=== PATIENT | male | born 1970 | race Caucasian/White ===

== ENCOUNTER 2024-03-12 19:26 | Inpatient (IN) | payer SELFPAY ==
[2024-03-12] VITALS (12 sets, daily range): BP systolic 117–136; BP diastolic 39–76; PULSE 90–100; RESP 22–42; TEMP 37–39.5; O2SAT 85–94; BMI 21.2
--- NOTE | 2024-03-12 19:47 | XRR_ITS ---
PROCEDURE INFORMATION: Exam: XR Chest Exam date and time: 03/12/2024 8:43 PM Age: 53 years old Clinical indication: Patient HX: AMS; Weakness; Hypoxia; Fever TECHNIQUE: Imaging protocol: Radiologic exam of the chest. Views: 1 view. COMPARISON: No relevant prior studies available. FINDINGS: Lungs: Slight asymmetrical haziness is seen at the left lower lung field compared to the right. Findings may be related to under ventilation though early infiltrate in this region may be difficult to exclude on this portable view. Pleural spaces: Unremarkable. No pleural effusion. No pneumothorax. Heart/Mediastinum: Unremarkable. No cardiomegaly. Bones/joints: Unremarkable. XR/XR chest 1V portable [id number] IMPRESSION: Subtle asymmetry at the left lung base representing either under ventilation versus subtle infiltrate. If necessary, repeat radiograph using standard PA and lateral projection may be of benefit.
--- NOTE | 2024-03-12 19:47 | CTR_ITS ---
PROCEDURE INFORMATION: Exam: CT Head Without Contrast Exam date and time: 03/12/2024 8:49 PM Age: 53 years old Clinical indication: Altered mental status/memory loss; Patient HX: EMS arrival for AMS. Patient acutely confused. Unable to obtain further history. TECHNIQUE: Imaging protocol: Computed tomography of the head without contrast. Radiation optimization: All CT scans at this facility use at least one of these dose optimization techniques: automated exposure control; mA and/or kV adjustment per patient size (includes targeted exams where dose is matched to clinical indication); or iterative reconstruction. COMPARISON: No relevant prior studies available. RADIATION DOSE METRICS: Total DLP (mGy-cm): 2241.98 FINDINGS: Brain: No intracranial hemorrhage. There is global parenchymal volume loss. Periventricular white matter hypoattenuation is nonspecific but most likely due to small vessel disease. No evidence of acute territorial infarct or cerebral edema. No mass effect or midline shift. Cerebral ventricles: Prominent ventricles likely secondary to volume loss. Paranasal sinuses: Visualized sinuses are unremarkable. No fluid levels. Mastoid air cells: Visualized mastoid air cells are well aerated. There are soft tissue filling defects within the external auditory canals bilaterally. Bones: Unremarkable. No acute fracture. Soft tissues: Unremarkable. CT/CT head wo con* [id number] IMPRESSION: 1. No acute intracranial findings. 2. Soft tissue filling defect in external auditory canals for which correlation with physical exam be helpful.
--- NOTE | 2024-03-12 19:48 | ECG_ITS ---
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 Measurements Intervals [place] Rate: 96 P: 60 RI: 145 QRS: 77 QRSD: 141 T: 56 QT: 351 QTc: 443 Interpretive Statements SINUS RHYTHM RIGHT BUNDLE BRANCH BLOCK [120+ ms QRS DURATION, UPRIGHT V1, 40+ ms S IN I/aVL/V4/V5/V6] No previous ECG available for comparison Electronically Signed On 03-13-2024 7:20:28 CDT by Asim De La Cruz M.D. [id number]
[2024-03-12 20:00] LABS: ABG PCO2 25.3 mmHg (35-45); ABG PH Result 7.47 (7.35-7.45); Base Excess ABG -3.6 mmol/L (-2.0-2.0); Blood Gas Sample Site Brachial, right; Blood Gas Sample Type Arterial; Carboxyhemoglobin 0.6 %THgb (0.4-20.1); HCO3 ABG 18.3 mmol/L (22-26); HGB O2 Sat 89.4 % (95-100); Methemoglobin 1.2 % (0.4-1.5); Oxygen Device ROOM AIR; PO2 ABG 57.1 mmHg (80.0-100.0)
--- NOTE | 2024-03-12 20:19 | W.ED.AMS ---
HPI - Altered Mental Status General: Chief Complaint: Altered Mental Status Stated Complaint: AMS Time Seen by Provider: 03/12/24 19:42 Source: EMS Mode of arrival: EMS Limitations: altered mental status History of Present Illness: 53-year-old male that neighbors went and checked on him today because he had not seen him in 3 days found him very confused and his house states the house was very hot here patient is able to tell me his name but he is quite confused otherwise. He appears very dehydrated. Patient does not know the year or where he is from. He is febrile here. Review of Systems General: Reports: ROS unobtainable due to mental status Physical Exam Const: COMMON NORMALS: negative for patient oriented x3 EXAM LIMITATIONS: altered mental status GENERAL APPEARANCE: ill appearing HENMT: COMMON NORMALS: normocephalic and atraumatic HEAD & SCALP: normocephalic and atraumatic Eye: COMMON NORMALS: Equal, round and reactive pupils present and EOMs intact bilaterally PUPIL: Yes Equal, round and reactive pupils present Neck/C-Spine: COMMON NORMALS: full ROM and supple Chest: COMMONS NORMALS: normal inspection of the chest Resp: COMMON NORMALS: normal respiratory effort Cardio: COMMON NORMALS: regular rate, regular rhythm and No murmurs present (Cardio) RATE: regular rate RHYTHM: regular rhythm GI: COMMON NORMALS: Normal to inspection, nondistended, normoactive bowel sounds present, Soft to palpation, non-tender and no masses PALPATION: Yes Soft to palpation Extremity: COMMON NORMALS: normal to inspection Neuro: COMMON NORMALS: moves all extremities and no focal motor deficits; negative for patient oriented x3 Psych: COMMON NORMALS: cooperative; negative for Normal thought process present THOUGHT PROCESS: abnormal Skin: COMMON NORMALS: no rashes or lesions noted and no wounds GENERAL SKIN EXAM: no rashes or lesions noted Course Vital Signs: Vital signs: Vital Signs Temperature 98.6 F 03/12/24 20:15 Pulse Rate 94 03/12/24 22:30 Respiratory Rate 33 H 03/12/24 22:30 Blood Pressure 117/59 03/12/24 22:30 Pulse Oximetry 91 03/12/24 22:30 Oxygen Delivery Me thod Room Air 03/12/24 22:30 Oxygen Flow Rate 2 03/12/24 22:00 MDM - Altered Mental Status Medical Decision Making Patient presents with confusion he is much improved here after IV fluids once he is awake now he does admit to drinking daily he is in rhabdomyolysis with elevated CK as well as thrombocytopenia as well. No signs of any infection initial fever likely is due to heat exposure did send blood cultures and start him on antibiotics though. Medical Records I reviewed the patient's medical records. Lab Data I reviewed the patient's lab results. 03/12/24 20:15 03/12/24 20:15 Radiology Impressions Chest X-Ray 03/12/24 19:47 IMPRESSION: Subtle asymmetry at the left lung base representing either under ventilation versus subtle infiltrate. If necessary, repeat radiograph using standard PA and lateral projection may be of benefit. Head CT 03/12/24 19:47 IMPRESSION: 1. No acute intracranial findings. 2. Soft tissue filling defect in external auditory canals for which correlation with physical exam be helpful. Chest/Abdomen/Pelvis CT 03/12/24 22:17 IMPRESSION: 1. Patchy airspace/ground-glass densities in both lung kyle, nonspecific but can be seen with chronic aspiration/pneumonia. Minor background appearance of early fibrotic lung disease. 2. Coronary artery calcification. IMPRESSION: 1. Hepatic steatosis. 2. Splenomegaly 3. Bilateral inguinal fat hernias. Laboratory Results WBC 7.83 10^3/uL (3.29-11.43) 03/12/24 20:15 RBC 4.17 10^6/uL (3.85-5.65) 03/12/24 20:15 Hgb 13.80 g/dL (11.27-16.99) 03/12/24 20:15 Hct 40.7 % (37-53) 03/12/24 20:15 MCV 97.6 fl (82-101) 03/12/24 20:15 MCH 33.1 pg (27-33) H 03/12/24 20:15 MCHC 33.9 g/dL (30-55) 03/12/24 20:15 RDW 13.2 % (12.1-15.1) 03/12/24 20:15 Plt Count 20 10^3/cmm (157-399) L* 03/12/24 20:15 MPV 11.8 fL (7.4-10.4) H 03/12/24 20:15 Neut % (Auto) 14.4 % 03/12/24 20:15 Lymph % (Auto) 39.2 % 03/12/24 20:15 [place] % (Auto) 42.4 % 03/12/24 20:15 Eos % (Auto) 0.0 % 03/12/24 20:15 Baso % (Auto) 0.3 % 03/12/24 20:15 Neut # (Auto) 1.13 10^3/uL (1.8-7.7) L 03/12/24 20:15 Lymph # (Auto) 3.1 10^3/uL (0.8-4.8) 03/12/24 20:15 [place] # (Auto) 3.3 10^3/uL (0.2-0.9) H 03/12/24 20:15 Eos # (Auto) 0.0 10^3/uL (0.0-0.8) 03/12/24 20:15 Baso # (Auto) 0.0 10^3/uL (0.0-0.1) 03/12/24 20:15 Nucleated RBC % (auto) 0.3 % 03/12/24 20:15 Nucleated RBCs # 0.0 /100WBC 03/12/24 20:15 Peripher Smr Path Cons Sent for review 03/12/24 22:39 PT 18.10 SECONDS (12.1-14.9) H 03/12/24 22:39 INR 1.45 (0.8-1.2) H 03/12/24 22:39 APTT 65.8 SECONDS (23.9-36.7) H 03/12/24 22:39 Specimen Type Arterial 03/12/24 19:48 Sample Site Brachial, right 03/12/24 19:48 ABG pH 7.47 (7.35-7.45) H 03/12/24 19:48 ABG pCO2 25.3 mmHg (35-45) L 03/12/24 19:48 ABG pO2 57.1 mmHg (80.0-100.0) L 03/12/24 19:48 ABG HCO3 18.3 mmol/L (22-26) L 03/12/24 19:48 ABG Base Excess -3.6 mmol/L (-2.0-2.0) L 03/12/24 19:48 [place] Test N/a 03/12/24 19:48 Hematocrit 46.0 % (42-52) 03/12/24 19:48 Hgb O2 Saturation 89.4 % (95-100) L 03/12/24 19:48 Carboxyhemoglobin 0.6 %THgb (0.4-20.1) 03/12/24 19:48 Methemoglobin 1.2 % (0.4-1.5) 03/12/24 19:48 Total Hemoglobin 15.0 g/dL (14-18) 03/12/24 19:48 O2 Delivery Device Room air 03/12/24 19:48 Warehouse Foreman ID [email or web address] 03/12/24 19:48 Sodium 134 mmol/L (136-145) L 03/12/24 20:15 Potassium 4.5 mmol/L (3.5-5.1) 03/12/24 20:15 Chloride 103 mmol/L (98-107) 03/12/24 20:15 Carbon Dioxide 18 mmol/L (22-29) L 03/12/24 20:15 Anion Gap 17.5 (5-19) 03/12/24 20:15 BUN 38 mg/dL (6-20) H 03/12/24 20:15 Creatinine 1.2 mg/dL (0.7-1.2) 03/12/24 20:15 GFR Calculation 63.1 mL/min (90-130) L 03/12/24 20:15 Glucose 93 mg/dL (65-115) 03/12/24 20:15 POC Glucose 91 mg/dL (70-110) 03/12/24 20:20 Calculated Osmolality 287 mOsm/kg (285-295) 03/12/24 20:15 Lactic Acid 2.3 mmol/L (0.5-2.2) H 03/12/24 20:15 Lactic Acid (Sepsis) 1.9 mmol/L (0.5-2.2) 03/12/24 22:39 Calcium 7.7 mg/dL (8.5-10.5) L 03/12/24 20:15 Magnesium 2.2 mg/dL (1.7-2.3) 03/12/24 20:15 Total Bilirubin 0.5 mg/dL (0.15-1.2) 03/12/24 20:15 AST 631 U/L (0-40) H 03/12/24 20:15 ALT 252 U/L (0-41) H 03/12/24 20:15 Alkaline Phosphatase 86 U/L (40-130) 03/12/24 20:15 Ammonia 28 umol/L (16-60) 03/12/24 20:15 Creatine Kinase 2713 U/L (39-308) H* 03/12/24 20:15 Troponin T Baseline 19 ng/L (0-15) H 03/12/24 20:15 Troponin T 120 Minute 19.71 ng/L (0-15) H 03/12/24 22:03 Delta Troponin T 0.71 ABS# (0-10) 03/12/24 22:03 C-Reactive Protein 3.0 mg/L (0.0-4.9) 03/12/24 22:39 Total Protein 7.5 g/dL (6.6-8.7) 03/12/24 20:15 Albumin 3.0 g/dL (3.5-5.2) L 03/12/24 20:15 Globulin 4.5 g/dL (1.3-4.6) 03/12/24 20:15 Lipase 167 U/L (13-60) H 03/12/24 20:15 TSH 0.65 uIU/mL (0.27-4.20) 03/12/24 20:15 Urine Color Dark yellow (Yellow) A 03/12/24 22:04 Urine Appearance Cloudy (CLEAR) A 03/12/24 22:04 Urine pH 5.5 (5-7) 03/12/24 22:04 Ur Specific [place] 1.017 (1.005-1.030) 03/12/24 22:04 Urine Protein 3+ (Negative) A 03/12/24 22:04 Urine Glucose (UA) Negative (Normal) 03/12/24 22:04 Urine Ketones Negative (Negative) 03/12/24 22:04 Urine Blood 3+ (Negative) A 03/12/24 22:04 Urine Nitrate Negative (Negative) 03/12/24 22:04 Urine Bilirubin Negative (Negative) 03/12/24 22:04 Urine Urobilinogen 1.0 mg/dL (Negative) 03/12/24 22:04 Ur Leukocyte Esterase Negative (Negative) 03/12/24 22:04 Urine RBC 0-2 /hpf (0-2) 03/12/24 22:04 Urine WBC 0-5 /hpf (0-5) 03/12/24 22:04 Ur Squamous Epith Cells 0-5 /hpf (0-5) 03/12/24 22:04 Amorphous Sediment Not Reportable 03/12/24 22:04 Urine Bacteria 2+ /hpf (NONE) H 03/12/24 22:04 Hyaline Casts 57.91 /lpf 03/12/24 22:04 Coarse Granular Casts 5-10 /lpf H 03/12/24 22:04 Urine Opiates Screen Negative ng/mL (Negative) 03/12/24 22:04 Ur Barbiturates Screen Negative ng/mL (Negative) 03/12/24 22:04 Ur Phencyclidine Scrn Negative ng/mL (Negative) 03/12/24 22:04 Ur Amphetamines Screen Negative ng/mL (Negative) 03/12/24 22:04 U Benzodiazepines Scrn Negative ng/mL (Negative) 03/12/24 22:04 Urine Cocaine Screen Negative ng/mL (Negative) 03/12/24 22:04 U Marijuana (THC) Screen Positive ng/mL (Negative) H 03/12/24 22:04 Ethyl Alcohol < 10 mg/dL (0-10) 03/12/24 20:15 SARS-CoV-2 Ag (Rapid) negative (Negative) 03/12/24 22:04 All radiology interpretation(s) finalized by discharge EKG Data EKG 1: I personally reviewed and interpreted this EKG as follows: EKG interpretation date: 03/12/24 EKG interpretation time: 20:09 Interpretation: nsr hr [address] or t wave abnormalities qrs 141 qtc 404 Discharge Plan Discharge Patient Disposition: Admitted As Inpatient Clinical Impression: Altered mental status, Rhabdomyolysis, Thrombocytopenia Condition: Stable Patient Instructions: Altered Mental Status (ED) Coding Level of Care Code ED Senior Applications Engineer for Misha Kunz
[2024-03-12 20:24] LABS: Glucose Point of Care 91 mg/dL (70-110)
[2024-03-12 20:38] LABS: Basophils % 0.3 %; Hematocrit 40.7 % (37-53); Lymphocytes # 3.1 10^3/uL (0.8-4.8); Lymphocytes % 39.2 %; Mean Corpuscular HGB Conc 33.9 g/dL (30-55); Mean Corpuscular Hemoglobin 33.1 pg (27-33); Mean Corpuscular Volume 97.6 fl (82-101); Mean Platelet Volume 11.8 fL (7.4-10.4); Monocytes # 3.3 10^3/uL (0.2-0.9); Monocytes % 42.4 %; Neutrophils # 1.13 10^3/uL (1.8-7.7); Neutrophils % 14.4 %; Nucleated Red Blood Cells % 0.3 %; Red Blood Count 4.17 10^6/uL (3.85-5.65); Red Cell Distribution Width 13.2 % (12.1-15.1); White Blood Count 7.83 10^3/uL (3.29-11.43)
[2024-03-12 20:49] LABS: INR 1.38 (0.8-1.2)
[2024-03-12 20:55] LABS: Troponin(5th) Baseline 19 ng/L (0-15)
[2024-03-12 20:57] LABS: Ammonia 28 umol/L (16-60); Lactic Sepsis W/Reflex 2.3 mmol/L (0.5-2.2)
[2024-03-12 21:29] LABS: Platelet Count 20 10^3/cmm (157-399); Slide Review Slide Review Perform
[2024-03-12] MEDS: acetaminophen 325 mg Tablet 650 MG PO (21:35)
[2024-03-12] MEDS: sodium chloride 0.9% 1,000 ML 999 ML IV ×2 (21:36→22:44)
--- NOTE | 2024-03-12 21:39 | PC.NURSE ---
PT PLACED ON 2L NC SUPPLEMENTAL O2 DUE TO SPO2 INTERMITTENTLY DROPPING.
--- NOTE | 2024-03-12 21:48 | ECG_ITS ---
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 Measurements Intervals [place] Rate: 88 P: 58 UT: 137 QRS: 71 QRSD: 144 T: 35 QT: 357 QTc: 433 Interpretive Statements SINUS RHYTHM RIGHT BUNDLE BRANCH BLOCK [120+ ms QRS DURATION, UPRIGHT V1, 40+ ms S IN I/aVL/V4/V5/V6] No previous ECG available for comparison Electronically Signed On 03-13-2024 7:21:02 CDT by Asim De La Cruz M.D. [id number]
[2024-03-12 22:01] LABS: Alanine Aminotransferase 252 U/L (0-41); Alcohol Level < 10 mg/dL (0-10); Alkaline Phosphatase 86 U/L (40-130); Anion Gap 17.5 (5-19); Aspartate Amino Transferase 631 U/L (0-40); Blood Urea Nitrogen 38 mg/dL (6-20); Calcium 7.7 mg/dL (8.5-10.5); Carbon Dioxide 18 mmol/L (22-29); Chloride 103 mmol/L (98-107); Creatinine Clr Calc Pharmacy 64.0378; Globulin 4.5 g/dL (1.3-4.6); Glomerular Filtration Rate 63.1 mL/min (90-130); Glucose 93 mg/dL (65-115); Lipase 167 U/L (13-60); Magnesium 2.2 mg/dL (1.7-2.3); Osmolality Calculated 287 mOsm/kg (285-295); Potassium 4.5 mmol/L (3.5-5.1); Sodium 134 mmol/L (136-145); Total Bilirubin 0.5 mg/dL (0.15-1.2); Total Protein 7.5 g/dL (6.6-8.7)
[2024-03-12 22:10] LABS: Thyroid Stimulating Hormone 0.65 uIU/mL (0.27-4.20)
[2024-03-12 22:10] LABS: Charge for UA Resulting for Rev
[2024-03-12 22:14] LABS: Bilirubin Urine Negative (Negative); Blood Urine 3+ (Negative); Glucose Urine UA Negative (Normal); Ketones Urine Negative (Negative); Leukocyte Esterase Urine Negative (Negative); Nitrate Urine Negative (Negative); Protein Urine 3+ (Negative); Specific Gravity, Urine 1.017 (1.005-1.030); Urine Appearance Cloudy (CLEAR); Urine Color Dark Yellow (Yellow); pH Urine 5.5 (5-7)
--- NOTE | 2024-03-12 22:17 | CTR_ITS ---
PROCEDURE INFORMATION: Exam: CT Chest With Contrast; Diagnostic Exam date and time: 03/12/2024 10:25 PM Age: 53 years old Clinical indication: Abnormal findings; Abnormal lab test; Other: Plt count 20. Ck 2713; Patient HX: EMS arrival for AMS. Critically low plt count of 20. Ck of 2713. Febrile. ; Additional info: Fever TECHNIQUE: Imaging protocol: Diagnostic computed tomography of the chest with contrast. Radiation optimization: All CT scans at this facility use at least one of these dose optimization techniques: automated exposure control; mA and/or kV adjustment per patient size (includes targeted exams where dose is matched to clinical indication); or iterative reconstruction. Contrast material: OMNI 350; Contrast volume: 100 ml; Contrast route: INTRAVENOUS (IV); COMPARISON: CR XR chest 1V portable [id number] 03/12/2024 8:43 PM RADIATION DOSE METRICS: Total DLP (mGy-cm): 2081.31 FINDINGS: Lungs: There is a combination of scattered patchy ground-glass densities in the right upper and lower lobe but also seen in the left lingula and lower lobe. There are subpleural areas resembling fibrotic honeycombing. Pleural spaces: Unremarkable. No pneumothorax. No pleural effusion. Heart: Unremarkable. No cardiomegaly. No pericardial effusion. Coronary arteries: There is coronary artery calcification. Lymph nodes: Unremarkable. No enlarged lymph nodes. Vasculature: Unremarkable. No aortic aneurysm. Bones/joints: Unremarkable. No acute fracture. Soft tissues: Unremarkable. PROCEDURE INFORMATION: Exam: CT Abdomen And Pelvis With Contrast Exam date and time: 03/12/2024 10:25 PM Age: 53 years old Clinical indication: Abnormal findings; Abnormal lab test; Other: Plt count 20. Ck 2713; Patient HX: EMS arrival for AMS. Critically low plt count of 20. Ck of 2713. Febrile. ; Additional info: Fever TECHNIQUE: Imaging protocol: Computed tomography of the abdomen and pelvis with contrast. Radiation optimization: All CT scans at this facility use at least one of these dose optimization techniques: automated exposure control; mA and/or kV adjustment per patient size (includes targeted exams where dose is matched to clinical indication); or iterative reconstruction. Contrast material: OMNI 350; Contrast volume: 100 ml; Contrast route: INTRAVENOUS (IV); COMPARISON: CR XR chest 1V portable [id number] 03/12/2024 8:43 PM RADIATION DOSE METRICS: Total DLP (mGy-cm): 2082.31 FINDINGS: Liver: The liver is diffusely decreased in density, compatible with hepatic steatosis. Gallbladder and biliary ducts: Normal. No calcified stones. No ductal dilation. Pancreas: Normal. No ductal dilation. Spleen: The spleen appears enlarged. Adrenal glands: Normal. No mass. Kidneys and ureters: Normal. No hydronephrosis. Stomach and bowel: Unremarkable. No obstruction. No mucosal thickening. Appendix: No evidence of appendicitis. Intraperitoneal space: Unremarkable. No free air. No significant fluid collection. Vasculature: Atherosclerotic calcification most significantly affecting the abdominal aorta and iliac arteries. No abdominal aortic aneurysm. Lymph nodes: Unremarkable. No enlarged lymph nodes. Urinary bladder: Unremarkable as visualized. Reproductive: Unremarkable as visualized. Bones/joints: Unremarkable. No acute fracture. Soft tissues: Bilateral inguinal fat hernias. CT/CT chest abdpel w/*[id number] IMPRESSION: 1. Patchy airspace/ground-glass densities in both lung kyle, nonspecific but can be seen with chronic aspiration/pneumonia. Minor background appearance of early fibrotic lung disease. 2. Coronary artery calcification. IMPRESSION: 1. Hepatic steatosis. 2. Splenomegaly 3. Bilateral inguinal fat hernias.
--- NOTE | 2024-03-12 22:18 | P.HP_ITS ---
Providers/Chief Complaint 2 Chief Complaint: AMS History of Present Illness Jorge Zapata is a 53 year old male with a past medical history significant for alcohol use disorder who presents to the emergency department with altered mental status. Upon assessment, patient is found to be a very poor historian. He is awake but unable to provide much regarding pertinent history. Collateral information collected from ED provider. Per collateral information, neighbors reportedly called EMS as they had not seen the patient for about 3 days. He was reportedly found to be in the hot home and very confused. They brought him to the emergency department. Upon presentation, he was found to be febrile. He was reportedly extremely confused upon presentation. Upon my evaluation his confusion has improved somewhat per nursing staff. He is awake. He is aware he is in [place]. States he is lived here for 17 years. He denies any chronic medical conditions. He reports he takes some medications but the only pill bottle with them is a acetaminophen/codeine with a fill date from November 2023. Patient reports the only surgery he is has hernia repair. He reports he drinks alcohol beer daily. He initially reports a sixpack a day but then is unsure if it is a sixpack a week. He denies fevers, chills, nausea or emesis. Denies other alleviating or aggravating factors. He has noted to have dried blood in his mouth and around his lips. In the emergency department, further workup revealed tachypnea. Labs revealed severe thrombocytopenia with platelets of 20. No anemia or leukocytosis. INR slightly elevated to 1.45. Further blood work showed mild hyponatremia, metabolic acidosis with bicarb 18, azotemia with BUN 38, lactic acidosis of 2.3, and elevated liver enzymes with AST 631, ALT 252. Bilirubin level normal. CK level elevated to 2713. CT chest abdomen pelvis obtained showing patchy airspace opacities in both lung kyle. Review of Systems 2 Narrative: A complete review of systems was obtained and is negative except as stated in HPI. PFSH Acute 2 PFSH: Medical History Alcohol use disorder Hernia Surgical History History of hernia repair Family History Denies family history of Thrombocytopenia Social History Smoking and tobacco/nicotine status: unknown if used tobacco/nicotine Alcohol intake: current Substance/Drug Use: never Vitals/I&O/Wt Last Vital Signs Temp 98.6 F 03/12/24 20:15 Pulse 97 03/12/24 19:50 Resp 24 H 03/12/24 19:50 BP 121/76 03/12/24 19:50 Pulse Ox 94 03/12/24 19:50 Weight last 48 hrs Weight 61.689 kg Physical Exam 2 Narrative: General: Patient is awake. Frail and cachectic appearing. Appears poorly kept. Head: Normocephalic. EOM intact. Temporal wasting. Poor dentition. Dried blood on gum and lip. Neck: No JVD. Cardiovascular: RRR. No gallops. No murmurs. No peripheral edema. Delayed capillary refill. Lungs: Slightly tachypneic, no use of accessory muscles, no crackles or wheezes. On room air Skin: No jaundice. No rashes. Abdomen: Normal bowel sounds, abdomen soft and nontender. Extremities: No cyanosis or clubbing. Musculoskeletal: No swollen or erythematous joints. Neurological: Moves all 4 extremities. No myoclonus. Data 03/12/24 20:15 03/12/24 20:15 Micro: Microbiology 03/12/24 20:23 Blood Culture - Preliminary Blood SPECIMEN COLLECTED 03/12/24 20:15 Blood Culture - Preliminary Blood SPECIMEN COLLECTED A&P Assessment and plan (1) Sepsis: Source: Suspected community-acquired pneumonia, possible aspiration SIRS: Tachypnea, febrile Hold off on full 30 mL/kg body weight IV fluid bolus due to concern for underlying liver dysfunction Start gentle IV fluids Start underlying treatment with ceftriaxone and azithromycin MRSA screen Panculture Telemetry Check inflammatory markers (2) Thrombocytopenia: Severe thrombocytopenia with platelets of 20 Differential includes sepsis, alcohol induced, ITP, TTP, DIC Normal bilirubin and normal hemoglobin suggest against TTP Check DIC panel, fibrinogen, LDH, haptoglobin, [place] 13, peripheral smear Trend CBC, consider transfusion for evidence of active bleeding or platelets less than 10,000 (3) Rhabdomyolysis: CPK elevated in the setting elevated BUN concerning for rhabdomyolysis Start IV fluids with normal saline Avoid nephrotoxins (4) Altered mental status: Acute metabolic encephalopathy Possible alcohol withdrawal within differential as well Treat underlying sepsis [facility] protocol for alcoholism Serial neurological exams Supportive care (5) Alcohol use disorder: Alcohol use disorder with abuse Start high-dose thiamine Folic acid and vitamin supplementation [facility] protocol Seizure precautions, dried blood in mouth suggestive of possible withdrawal seizure (6) Metabolic acidosis: Metabolic/lactic acidosis in the setting of sepsis, possible alcohol withdrawal seizure prior to admission Treat underlying sepsis Management as above (7) Transaminitis: AST greater than ALT Bilirubin is normal which suggest against active hemolysis Avoid hepatotoxins Repeat CMP in a.m. (8) Azotemia: Elevated BUN Starting hydration Renally dose medications Strict I's and O's Plan DVT prophylaxis: Low risk CODE STATUS: Assume full code Attestations 2 Medical Necessity Statement*: Patient presents with altered mental status, found to have multiple metabolic and hematologic derangements with expected hospitalization across 2 midnights for IV antibiotics, IV fluids, further workup, and supportive care. Coding Level of Care Code Acute Code for g Fwd Diagnoses Sepsis A41.9 Thrombocytopenia D69.6 Rhabdomyolysis M62.82 Altered mental status R41.82 Alcohol use disorder F10.90 Metabolic acidosis E87.20 Transaminitis R74.01 Azotemia R79.89
[2024-03-12 22:20] LABS: Reflex Lactate Order REFLEX LACTIC ORDERD
[2024-03-12 22:20] LABS: Hyaline Casts Urine 57.91 /lpf; RBC Urine 0-2 /hpf (0-2); Squamous Epithelial Cell Urine 0-5 /hpf (0-5); WBC Urine 0-5 /hpf (0-5)
[2024-03-12 22:22] LABS: Amphetamines Screen Urine Negative (Negative); Barbiturates Screen Urine Negative (Negative); Benzodiazepines Screen Urine Negative (Negative); Cocaine Screen Urine Negative (Negative); Opiate Screen Urine Negative (Negative); PCP Screen Urine Negative (Negative); THC Screen Urine Positive (Negative)
[2024-03-12 22:24] LABS: Creatine Phosphokinase 2713 U/L (39-308)
[2024-03-12 22:28] LABS: SARS Covid-2 Antigen negative (Negative)
[2024-03-12 22:39] LABS: Add Urine Culture? Yes; Bacteria Urine 2+ /hpf; UA Slide Review UA Slide Review Perf
[2024-03-12 22:43] LABS: Reflex FDPQ test REFLEX FDP QUEST TES
[2024-03-12 22:45] LABS: Troponin 5 2HR 19.71 ng/L (0-15); Troponin 5 2HR Delta 0.71 ABS# (0-10)
[2024-03-12] MEDS: cefTRIAXone 1,000 mg SDV 1000 MG IVP (22:45)
[2024-03-12] MEDS: azithromycin 500 MG in sodium chloride 0.9% 250 ML 250 MG IV (22:45)
[2024-03-12 22:48] LABS: LAB Peripheral Smear Sent for Review
[2024-03-12 23:01] LABS: INR 1.45 (0.8-1.2)
[2024-03-12 23:03] LABS: Partial Thromboplastin Time 65.8 SECONDS (23.9-36.7)
[2024-03-12 23:05] LABS: Lactic Acid level (Lactate) 1.9 mmol/L (0.5-2.2)
[2024-03-12 23:12] LABS: D Dimer 8.84 ug/mLFEU (0-0.59)
[2024-03-12 23:13] LABS: Procalcitonin 0.53 ng/mL (0-0.5)
[2024-03-12 23:17] LABS: Lactate Dehydrogenase 2249 U/L (135-225)
[2024-03-12 23:40] LABS: Fibrinogen 142 mg/dL (174-498)
[2024-03-13] VITALS (17 sets, daily range): BP systolic 100–136; BP diastolic 62–82; PULSE 75–101; RESP 17–27; TEMP 36.4–39.4; O2SAT 90–98
[2024-03-13 00:34] LABS: Thyroid Stimulating Hormone 0.67 uIU/mL (0.27-4.20)
[2024-03-13] MEDS: thiamine 500 MG in sodium chloride 0.9% (100 ml) 100 ML 210 MG IV (01:14)
[2024-03-13] MEDS: sodium chloride 0.9% 1,000 ML 75 ML IV (01:15)
[2024-03-13 01:19] LABS: HIV 1 & 2 Antibody Non-Reactive (Non-Reactiv); HIV 1 & 2 Antigen Non-Reactive (Non-Reactiv)
[2024-03-13 01:48] LABS: Basophils % 0.4 %; Hematocrit 40.8 % (37-53); Lymphocytes # 4.3 10^3/uL (0.8-4.8); Lymphocytes % 57.7 %; Mean Corpuscular HGB Conc 34.1 g/dL (30-55); Mean Corpuscular Hemoglobin 33.6 pg (27-33); Mean Corpuscular Volume 98.6 fl (82-101); Mean Platelet Volume 12.4 fL (7.4-10.4); Monocytes # 1.6 10^3/uL (0.2-0.9); Monocytes % 21.9 %; Neutrophils % 17.4 %; Nucleated Red Blood Cells % 0 %; Red Blood Count 4.14 10^6/uL (3.85-5.65); Red Cell Distribution Width 13.4 % (12.1-15.1); White Blood Count 7.44 10^3/uL (3.29-11.43)
[2024-03-13 02:00] LABS: INR 1.28 (0.8-1.2)
[2024-03-13 02:09] LABS: Troponin 5 6HR 26.09 ng/L (0-15); Troponin 5 6HR Delta 7.09 ng/L (0-12)
[2024-03-13 02:20] LABS: Alanine Aminotransferase 260 U/L (0-41); Albumin Level 3.1 g/dL (3.5-5.2); Alkaline Phosphatase 98 U/L (40-130); Anion Gap 17.5 (5-19); Blood Urea Nitrogen 34 mg/dL (6-20); Calcium 7.4 mg/dL (8.5-10.5); Carbon Dioxide 17 mmol/L (22-29); Chloride 104 mmol/L (98-107); Creatinine Clr Calc Pharmacy 69.8594; Globulin 4.8 g/dL (1.3-4.6); Glomerular Filtration Rate 69.8 mL/min (90-130); Glucose 108 mg/dL (65-115); Magnesium 2.2 mg/dL (1.7-2.3); Osmolality Calculated 286 mOsm/kg (285-295); Phosphorus 3.7 mg/dL (2.5-4.5); Potassium 4.5 mmol/L (3.5-5.1); Sodium 134 mmol/L (136-145); Total Bilirubin 0.6 mg/dL (0.15-1.2); Total Protein 7.9 g/dL (6.6-8.7)
[2024-03-13 02:27] LABS: Aspartate Amino Transferase 779 U/L (0-40)
[2024-03-13 02:29] LABS: Creatine Phosphokinase 3048 U/L (39-308); Platelet Count 19 10^3/cmm (157-399)
[2024-03-13] MEDS: lanolin oint 7 gm 1 APPLIC TOPICAL (03:09)
[2024-03-13] MEDS: folic acid 1 mg Tablet PO (08:50)
[2024-03-13] MEDS: multivitamin therapeutic Tablet 1 TAB PO (08:50)
--- NOTE | 2024-03-13 09:16 | PC.NURSE ---
This nurse called patients daughter, Tiffany, to verify first and last name and . Pt is confused, but keeps stating he was born in [birth year] rather than 1970. Tiffany says she does not have the exact year, but she does not believe he was born in 1970. She will find out that information and give me a call back.
[2024-03-13 09:38] LABS: Basophils % 0.4 %; Hematocrit 38.1 % (37-53); Lymphocytes # 3.8 10^3/uL (0.8-4.8); Lymphocytes % 40.3 %; Mean Corpuscular HGB Conc 34.4 g/dL (30-55); Mean Corpuscular Hemoglobin 33.9 pg (27-33); Mean Corpuscular Volume 98.4 fl (82-101); Mean Platelet Volume 13.3 fL (7.4-10.4); Monocytes # 3.2 10^3/uL (0.2-0.9); Monocytes % 33.4 %; Neutrophils # 2.11 10^3/uL (1.8-7.7); Neutrophils % 22.4 %; Nucleated Red Blood Cells % 0.3 %; Red Blood Count 3.87 10^6/uL (3.85-5.65); Red Cell Distribution Width 13.5 % (12.1-15.1); White Blood Count 9.43 10^3/uL (3.29-11.43)
[2024-03-13 09:42] LABS: Hepatitis A Antibody IgM Non-Reactive (Nonreactive); Hepatitis B Core AB, Total Non-Reactive (Nonreactive); Hepatitis B Surface Antigen Non-Reactive (Nonreactive); Hepatitis C Virus Antibody Reactive (Nonreactive)
[2024-03-13] MEDS: ketorolac 30 mg/mL INJ 15 MG IVP (09:44)
[2024-03-13 09:53] LABS: Alanine Aminotransferase 257 U/L (0-41); Albumin Level 2.9 g/dL (3.5-5.2); Alkaline Phosphatase 126 U/L (40-130); Blood Urea Nitrogen 30 mg/dL (6-20); Calcium 7.3 mg/dL (8.5-10.5); Carbon Dioxide 14 mmol/L (22-29); Chloride 111 mmol/L (98-107); Creatinine Clr Calc Pharmacy 80.0741; Globulin 4.4 g/dL (1.3-4.6); Glomerular Filtration Rate 77.9 mL/min (90-130); Glucose 116 mg/dL (65-115); Osmolality Calculated 295 mOsm/kg (285-295); Sodium 139 mmol/L (136-145); Total Bilirubin 0.6 mg/dL (0.15-1.2); Total Protein 7.3 g/dL (6.6-8.7)
[2024-03-13 10:02] LABS: Aspartate Amino Transferase 873 U/L (0-40)
[2024-03-13 10:07] LABS: Platelet Count 20 10^3/cmm (157-399)
[2024-03-13 11:58] LABS: Reticulocyte % 0.7 % (0.5-2.0)
[2024-03-13 12:10] LABS: Erythrocyte Sedimentation Rate 13 mm/hr (0-10)
[2024-03-13] MEDS: pantoprazole 40 mg SDV IVP (12:15)
[2024-03-13 12:20] LABS: Procalcitonin 1.73 ng/mL (0-0.5)
[2024-03-13] MEDS: methylPREDNISolone sod succ 1,000 MG in sodium chloride 0.9% 250 ML 258 MG IV (12:30)
[2024-03-13 12:31] LABS: Reflex FDPQ test REFLEX FDP QUEST TES
[2024-03-13 12:32] LABS: Total Bilirubin 0.6 mg/dL (0.15-1.2)
[2024-03-13 12:33] LABS: Gamma Glutamyl Transferase 324 U/L (8-61)
[2024-03-13 12:34] LABS: Acetaminophen < 5.0 ug/mL (10-30); Salicylate < 0.3 mg/dL (3-10)
[2024-03-13 12:49] LABS: INR 1.54 (0.8-1.2)
[2024-03-13 12:55] LABS: Fibrinogen 140 mg/dL (174-498)
[2024-03-13 12:57] LABS: Partial Thromboplastin Time 86.3 SECONDS (23.9-36.7)
[2024-03-13 13:00] LABS: D Dimer 15.28 ug/mLFEU (0-0.59)
[2024-03-13] MEDS: vancomycin 1,000 MG in sodium chloride 0.9% 250 ML 250 MG IV (14:00)
[2024-03-13] MEDS: aztreonam 1,000 MG in sodium chloride 0.9% (plus) 50 ML 100 MG IV (14:00)
[2024-03-13] MEDS: sodium chloride 0.9% 1,000 ML 100 ML IV (14:01)
[2024-03-13 14:15] LABS: Ferritin 29898 ng/mL (30-400)
[2024-03-13 14:16] LABS: Haptoglobin 324.1 mg/L (30-200)
[2024-03-13 14:38] LABS: Chol HDL Ratio 8.67 mg/dL (1.0-5.00); Cholesterol 78 mg/dL (0-200); HDL Cholesterol 9 mg/dL (60-100); LDL Cholesterol Calculated 18 mg/dL (50-129); Triglycerides 255 mg/dL (0-150); VLDL Cholestrol Calculation 51 mg/dL (0-30)
--- NOTE | 2024-03-13 15:26 | PM.TDS ---
Transfer Summary Providers Date of Admission: 03/12/24 23:09 Date of Discharge/Transfer: 03/13/24 Attending Provider at Admission: Tru Gar MD Attending Provider at Transfer: Camille Langley MD Transfer Plans: Anticipated date of transfer: 03/13/24. Receiving Facility: [facility]. Diagnoses at Discharge Discharge Diagnosis (1) Sepsis: Status: Acute (2) Thrombocytopenia: Status: Acute (3) Rhabdomyolysis: Status: Acute (4) Altered mental status: Status: Acute (5) Alcohol use disorder: Status: Acute (6) Metabolic acidosis: Status: Acute (7) Transaminitis: Status: Acute (8) Azotemia: Status: Acute Reason for Visit Reason for Visit AMS Brief History: As per Dr. Gar Jorge Zapata is a 53 year old male with a past medical history significant for alcohol use disorder who presents to the emergency department with altered mental status. Upon assessment, patient is found to be a very poor historian. He is awake but unable to provide much regarding pertinent history. Collateral information collected from ED provider. Per collateral information, neighbors reportedly called EMS as they had not seen the patient for about 3 days. He was reportedly found to be in the hot home and very confused. They brought him to the emergency department. Upon presentation, he was found to be febrile. He was reportedly extremely confused upon presentation. Upon my evaluation his confusion has improved somewhat per nursing staff. He is awake. He is aware he is in [place]. States he is lived here for 17 years. He denies any chronic medical conditions. He reports he takes some medications but the only pill bottle with them is a acetaminophen/codeine with a fill date from November 2023. Patient reports the only surgery he is has hernia repair. He reports he drinks alcohol beer daily. He initially reports a sixpack a day but then is unsure if it is a sixpack a week. He denies fevers, chills, nausea or emesis. Denies other alleviating or aggravating factors. He has noted to have dried blood in his mouth and around his lips. In the emergency department, further workup revealed tachypnea. Labs revealed severe thrombocytopenia with platelets of 20. No anemia or leukocytosis. INR slightly elevated to 1.45. Further blood work showed mild hyponatremia, metabolic acidosis with bicarb 18, azotemia with BUN 38, lactic acidosis of 2.3, and elevated liver enzymes with AST 631, ALT 252. Bilirubin level normal. CK level elevated to 2713. CT chest abdomen pelvis obtained showing patchy airspace opacities in both lung kyle. Hospital Course Hospital Course Patient was admitted overnight for Sepsis secondary to possible aspiration pneumonia associated with severe thrombocytopenia, rhabdomyolysis, altered mental status, alcohol use disorder, worsening transaminitis. Labs are followed up on this morning, DIC profile is positive and worsening, GGT elevated, ferritin 29,000, haptoglobin 123, reticulocyte count 0.7, GGT 09/14/1947, ALT AST 857, 227, bicarb 14. Lactic acid 1.9, creatinine kinase worsening from 20 700-3000. There was high suspicion of TTP and peripheral smear was reviewed by myself with possibility of helmet cells versus artifact. Currently do not have refining supervisor oncologist or pathology coverage over the weekend. Smear has been sent however will take days to return. Discussed with refining supervisor over phone at [facility]. They do not believe patient is having acute TTP at this time based on his lab values. However I do agree that he needs further diagnostic workup and there may be possibility of HLH. I have high clinical suspicion of HLH versus acute liver disease. Hepatitis panel is also positive, hepatitis C RNA is pending. Patient will need higher level of care at this point for further workup and management. Patient does have evidence of some mucosal bleeding therefore 2 units of platelet have been ordered however they will not be available before a few hours to transfuse. I have discussed case with reporting coordinator, refining supervisor and hospitalist at [place] multiple times. Currently patient is on IV fluids, broad-spectrum antibiotics. He was also given a gram of Solu-Medrol earlier in the day. Patient is currently on high-dose thiamine as well. He is currently vitally stable at time of transfer.He will be transferred to [facility] in stable condition at this time for refining supervisor potentially quality systems manager and potentially GI consult for further management. Physical Exam Narrative: General: Patient is awake. Frail and cachectic appearing. Appears poorly kept. Head: Normocephalic. EOM intact. Temporal wasting. Poor dentition. Dried blood on gum and lip. COnfused. Neck: No JVD. Cardiovascular: RRR. No gallops. No murmurs. No peripheral edema. Delayed capillary refill. Lungs: Clear to auscultation b/l, no gross wheezes, on 3L NC Skin: No jaundice. No rashes. Abdomen: Normal bowel sounds, abdomen soft and nontender. Extremities: No cyanosis or clubbing. Musculoskeletal: No swollen or erythematous joints. Neurological: Moves all 4 extremities. No myoclonus. TS Data Studies Completed and Pending Pending at discharge Category Date Time Status ABO/Rh Type Stat Lab 03/13/24 01:40 Results ADAMTS 13 Activity With Reflex Routine Lab 03/12/24 22:39 Received Blood Culture Stat Lab 03/12/24 20:23 Results CBC Auto Diff [Complete Blood Count w/Auto] Routine Lab 03/13/24 18:00 Ordered Complete Blood Count w/Auto AM LABS Lab 03/14/24 04:00 Ordered Complete Crossmatch Stat Lab 03/13/24 01:40 Results Comprehensive Metabolic Panel AM LABS Lab 03/14/24 04:00 Ordered Fibrinogen Degradation Product Routine Lab 03/12/24 22:43 Received Fibrinogen Degradation Product Routine Lab 03/13/24 12:31 Received Hepatitis C RNA Viral Load Qnt Routine Lab 03/13/24 09:43 Received MRSA [Methicillin Resistant S.aureu] Routine Lab 03/13/24 00:21 Received Magnesium AM LABS Lab 03/14/24 04:00 Ordered Platelets Leuko-Reduced Stat Lab 03/13/24 01:40 Results Retype for Patiets ABO/Rh Routine Lab 03/13/24 15:04 Ordered Tick Panel Stat Lab 03/13/24 09:29 Received Urine Culture Stat Lab 03/12/24 22:04 Received US abdomen complete* [id number] Stat Ultrasound 03/13/24 11:55 Ordered Completed Studies During Hospitalization Category Date Time Status CT chest abdomen pelvis [CT chest abdpel w/*[id number] Cat Scan 03/12/24 22:17 Completed ] Stat CT head wo con* [id number] Stat Cat Scan 03/12/24 19:47 Completed XR chest 1V portable [id number] Stat Exams 03/12/24 19:47 Completed Laboratory Last Values WBC 9.43 10^3/uL (3.29-11.43) 03/13/24 09:29 RBC 3.87 10^6/uL (3.85-5.65) 03/13/24 09:29 Hgb 13.10 g/dL (11.27-16.99) 03/13/24 09: Hct 38.1 % (37-53) 03/13/24 09: MCV 98.4 fl (82-101) 03/13/24 09: MCH 33.9 pg (27-33) H 03/13/24 09: MCHC 34.4 g/dL (30-55) 03/13/24 09: RDW 13.5 % (12.1-15.1) 03/13/24 09: Plt Count 20 10^3/cmm (157-399) L* 03/13/24 09: MPV 13.3 fL (7.4-10.4) H 03/13/24 09: Neut % (Auto) 22.4 % 03/13/24 09: Lymph % (Auto) 40.3 % 03/13/24 09: Storey % (Auto) 33.4 % 03/13/24 09: Eos % (Auto) 0.0 % 03/13/24 09: Baso % (Auto) 0.4 % 03/13/24 09: Reticulocyte % (Auto) 0.7 % (0.5-2.0) 03/13/24 09: Neut # (Auto) 2.11 10^3/uL (1.8-7.7) 03/13/24 09: Lymph # (Auto) 3.8 10^3/uL (0.8-4.8) 03/13/24 09: Storey # (Auto) 3.2 10^3/uL (0.2-0.9) H 03/13/24 09: Eos # (Auto) 0.0 10^3/uL (0.0-0.8) 03/13/24 09: Baso # (Auto) 0.0 10^3/uL (0.0-0.1) 03/13/24 09: Nucleated RBC % (auto) 0.3 % 03/13/24 09: Nucleated RBCs # 0.0 /100WBC 03/13/24 09:29 Peripher Smr Path Cons Sent for review 03/12/24 22:39 ESR 13 mm/hr (0-10) H 03/13/24 01:40 Haptoglobin 324.1 mg/L (30-200) H 03/13/24 09:29 PT 19.00 SECONDS (12.1-14.9) H 03/13/24 12:27 INR 1.54 (0.8-1.2) H 03/13/24 12:27 APTT 86.3 SECONDS (23.9-36.7) H 03/13/24 12:27 Fibrinogen 140 mg/dL (174-498) L 03/13/24 12:27 D-Dimer 15.28 ug/mLFEU (0-0.59) H 03/13/24 12:27 Specimen Type Arterial 03/12/24 19:48 Sample Site Brachial, right 03/12/24 19:48 ABG pH 7.47 (7.35-7.45) H 03/12/24 19:48 ABG pCO2 25.3 mmHg (35-45) L 03/12/24 19:48 ABG pO2 57.1 mmHg (80.0-100.0) L 03/12/24 19:48 ABG HCO3 18.3 mmol/L (22-26) L 03/12/24 19:48 ABG Base Excess -3.6 mmol/L (-2.0-2.0) L 03/12/24 19:48 Arsalan Test N/a 03/12/24 19:48 Hematocrit 46.0 % (42-52) 03/12/24 19:48 Hgb O2 Saturation 89.4 % (95-100) L 03/12/24 19:48 Carboxyhemoglobin 0.6 %THgb (0.4-20.1) 03/12/24 19:48 Methemoglobin 1.2 % (0.4-1.5) 03/12/24 19:48 Total Hemoglobin 15.0 g/dL (14-18) 03/12/24 19:48 O2 Delivery Device Room air 03/12/24 19:48 Keying Machine Operator ID [email or web address] 03/12/24 19:48 Sodium 139 mmol/L (136-145) 03/13/24 09:29 Potassium 4.0 mmol/L (3.5-5.1) 03/13/24 09:29 Chloride 111 mmol/L (98-107) H 03/13/24 09:29 Carbon Dioxide 14 mmol/L (22-29) L 03/13/24 09:29 Anion Gap 18.0 (5-19) 03/13/24 09:29 BUN 30 mg/dL (6-20) H 03/13/24 09:29 Creatinine 1.0 mg/dL (0.7-1.2) 03/13/24 09:29 GFR Calculation 77.9 mL/min (90-130) L 03/13/24 09:29 Glucose 116 mg/dL (65-115) H 03/13/24 09:29 POC Glucose 91 mg/dL (70-110) 03/12/24 20:20 Calculated Osmolality 295 mOsm/kg (285-295) 03/13/24 09:29 Lactic Acid 2.3 mmol/L (0.5-2.2) H 03/12/24 20:15 Lactic Acid (Sepsis) 1.9 mmol/L (0.5-2.2) 03/12/24 22:39 Calcium 7.3 mg/dL (8.5-10.5) L 03/13/24 09:29 Phosphorus 3.7 mg/dL (2.5-4.5) 03/13/24 01:40 Magnesium 2.2 mg/dL (1.7-2.3) 03/13/24 01:40 Ferritin 98003 ng/mL (30-400) H 03/13/24 01:40 Total Bilirubin 0.6 mg/dL (0.15-1.2) 03/13/24 09:29 Direct Bilirubin 0.40 mg/dL (0.00-0.30) H 03/13/24 01:40 Indirect Bilirubin 0.20 03/13/24 01:40 GGT 324 U/L (8-61) H 03/13/24 01:40 AST 873 U/L (0-40) H 03/13/24 09:29 ALT 257 U/L (0-41) H 03/13/24 09:29 Alkaline Phosphatase 126 U/L (40-130) 03/13/24 09:29 Ammonia 28 umol/L (16-60) 03/12/24 20:15 Lactate Dehydrogenase 2249 U/L (135-225) H 03/12/24 22:39 Creatine Kinase 3048 U/L (39-308) H* 03/13/24 01:40 Troponin T Baseline 19 ng/L (0-15) H 03/12/24 20:15 Troponin T 120 Minute 19.71 ng/L (0-15) H 03/12/24 22:03 Delta Troponin T 0.71 ABS# (0-10) 03/12/24 22:03 Troponin T Hi Sens 6Hr 26.09 ng/L (0-15) H 03/13/24 01:40 Troponin T Hi Sens 6Hr Delta 7.09 ng/L (0-12) 03/13/24 01:40 C-Reactive Protein 3.0 mg/L (0.0-4.9) 03/13/24 09:29 Total Protein 7.3 g/dL (6.6-8.7) 03/13/24 09:29 Albumin 2.9 g/dL (3.5-5.2) L 03/13/24 09:29 Globulin 4.4 g/dL (1.3-4.6) 03/13/24 09:29 Triglycerides 255 mg/dL (0-150) H 03/13/24 12:22 Cholesterol 78 mg/dL (0-200) 03/13/24 12:22 LDL Cholesterol, Calc 18 mg/dL (50-129) L 03/13/24 12:22 Total VLDL Cholesterol 51 mg/dL (0-30) H 03/13/24 12:22 HDL Cholesterol 9 mg/dL (60-100) L 03/13/24 12:22 Cholesterol/HDL Ratio 8.67 mg/dL (1.0-5.00) H 03/13/24 12:22 Lipase 167 U/L (13-60) H 03/12/24 20:15 Procalcitonin 1.73 ng/mL (0-0.5) H 03/13/24 09:29 TSH 0.65 uIU/mL (0.27-4.20) 03/12/24 20:15 TSH 0.67 uIU/mL (0.27-4.20) 03/12/24 20:15 Urine Color Dark yellow (Yellow) A 03/12/24 22:04 Urine Appearance Cloudy (CLEAR) A 03/12/24 22:04 Urine pH 5.5 (5-7) 03/12/24 22:04 Ur Specific [place] 1.017 (1.005-1.030) 03/12/24 22:04 Urine Protein 3+ (Negative) A 03/12/24 22:04 Urine Glucose (UA) Negative (Normal) 03/12/24 22:04 Urine Ketones Negative (Negative) 03/12/24 22:04 Urine Blood 3+ (Negative) A 03/12/24 22:04 Urine Nitrate Negative (Negative) 03/12/24 22:04 Urine Bilirubin Negative (Negative) 03/12/24 22:04 Urine Urobilinogen 1.0 mg/dL (Negative) 03/12/24 22:04 Ur Leukocyte Esterase Negative (Negative) 03/12/24 22:04 Urine RBC 0-2 /hpf (0-2) 03/12/24 22:04 Urine WBC 0-5 /hpf (0-5) 03/12/24 22:04 Ur Squamous Epith Cells 0-5 /hpf (0-5) 03/12/24 22:04 Amorphous Sediment Not Reportable 03/12/24 22:04 Urine Bacteria 2+ /hpf (NONE) H 03/12/24 22:04 Hyaline Casts 57.91 /lpf 03/12/24 22:04 Coarse Granular Casts 5-10 /lpf H 03/12/24 22:04 Salicylates < 0.3 mg/dL (3-10) L 03/13/24 01:40 Urine Opiates Screen Negative ng/mL (Negative) 03/12/24 22:04 Acetaminophen < 5.0 ug/mL (10-30) L 03/13/24 01:40 Ur Barbiturates Screen Negative ng/mL (Negative) 03/12/24 22:04 Ur Phencyclidine Scrn Negative ng/mL (Negative) 03/12/24 22:04 Ur Amphetamines Screen Negative ng/mL (Negative) 03/12/24 22:04 U Benzodiazepines Scrn Negative ng/mL (Negative) 03/12/24 22:04 Urine Cocaine Screen Negative ng/mL (Negative) 03/12/24 22:04 U Marijuana (THC) Screen Positive ng/mL (Negative) H 03/12/24 22:04 Ethyl Alcohol < 10 mg/dL (0-10) 03/12/24 20:15 Hepatitis A IgM Ab Non-reactive (Nonreactive) 03/13/24 01:40 Hep Bs Antigen Non-reactive (Nonreactive) 03/13/24 01:40 Hep Bs Antibody 16.0 (11.5-1000) 03/13/24 01:40 Hep B Core Total Ab Non-reactive (Nonreactive) 03/13/24 01:40 Hepatitis C Antibody Reactive (Nonreactive) H 03/13/24 01:40 HIV 1&2 Ab & HIV 1 Ag Non-reactive (Non-Reactiv) 03/12/24 20:15 HIV 1&2 Antibody Non-reactive (Non-Reactiv) 03/12/24 20:15 SARS-CoV-2 Ag (Rapid) negative (Negative) 03/12/24 22:04 MARVEL, IgG Interpret Cancelled 03/13/24 01:40 MARVEL, Poly Interpret Cancelled 03/13/24 01:40 MARVEL, Poly Interpret Negative 03/13/24 01:40 MARVEL, Complement Interp Cancelled 03/13/24 01:40 Radiology Impressions Chest X-Ray 03/12/24 19:47 IMPRESSION: Subtle asymmetry at the left lung base representing either under ventilation versus subtle infiltrate. If necessary, repeat radiograph using standard PA and lateral projection may be of benefit. Head CT 03/12/24 19:47 IMPRESSION: 1. No acute intracranial findings. 2. Soft tissue filling defect in external auditory canals for which correlation with physical exam be helpful. Chest/Abdomen/Pelvis CT 03/12/24 22:17 IMPRESSION: 1. Patchy airspace/ground-glass densities in both lung kyle, nonspecific but can be seen with chronic aspiration/pneumonia. Minor background appearance of early fibrotic lung disease. 2. Coronary artery calcification. IMPRESSION: 1. Hepatic steatosis. 2. Splenomegaly 3. Bilateral inguinal fat hernias. Recent Clincial Data Last Vital Signs Temp 98.5 F 03/13/24 11:36 Pulse 88 03/13/24 11:36 Resp 17 03/13/24 11:36 BP 102/62 03/13/24 11:36 Pulse Ox 90 03/13/24 11:36 O2 Del Method Nasal Cannula 03/13/24 11:36 O2 Flow Rate 3 03/13/24 11:36 Vital Signs Temp Pulse Resp BP Pulse Ox O2 Del Method O2 Flow Rate 03/13/24 11:36 98.5 F 88 17 102/62 90 Nasal Cannula 3 03/13/24 08:56 102.2 F H 03/13/24 08:00 2 03/13/24 07:14 103.0 F H 101 H 19 H 124/71 94 Nasal Cannula 3 03/13/24 04:00 100.3 F H 96 26 H 136/69 92 Nasal Cannula Intake & Output/Weight 03/11/24 03/12/24 03/13/24 03/14/24 06:59 06:59 06:59 06:59 Intake Total 2355 / 2355 1558.00 / 1558.00 Output Total 225 / 225 Balance 2130 / 2130 1558.00 / 1558.00 Weight 68.447 kg Vitals Last Vital Signs Temp 98.5 F 03/13/24 11:36 Pulse 88 03/13/24 11:36 Resp 17 03/13/24 11:36 BP 102/62 03/13/24 11:36 Pulse Ox 90 03/13/24 11:36 O2 Del Method Nasal Cannula 03/13/24 11:36 O2 Flow Rate 3 03/13/24 11:36 TS Medications Medications Folic Acid (Folic Acid 1 Mg Tablet) 1 mg PO DAILY JUAN M Last Admin: 03/13/24 08:50 Dose: 1 mg Sodium Chloride (Sodium Chloride 0.9%) 1,000 mls @ 100 mls/hr IV .Q10H JUAN M Last Admin: 03/13/24 14:01 Dose: 100 mls/hr Thiamine HCl 500 mg/ Sodium (Chloride) 105 mls @ 210 mls/hr IV Q24H JUAN M Stop: 03/15/24 00:14 Last Infusion: 03/13/24 02:37 Dose: Infused Aztreonam 1,000 mg/ Sodium (Chloride) 50 mls @ 100 mls/hr IV Q12H JUAN M; Protocol Last Infusion: 03/13/24 14:33 Dose: Infused Vancomycin HCl 1,000 mg/ (Sodium Chloride) 250 mls @ 250 mls/hr IV Q12H JUAN M; Protocol Last Infusion: 03/13/24 15:14 Dose: Infused Iohexol (Iohexol 350 Mg/Ml 500 Ml Btl (Per Ml)) 0 ml IV ONCE JUAN M Lanolin (Lanolin Oint 7 Gm) 1 applic TOPICAL PRN PRN PRN Reason: DRYNESS Last Admin: 03/13/24 03:09 Dose: 1 applic Lorazepam (Lorazepam 2 Mg Tablet) 2 mg PO Q4H PRN; Protocol PRN Reason: WITHDRAWAL Lorazepam (Lorazepam 2 Mg/Ml Inj 1 Ml) 2 mg IM Q4H PRN; Protocol PRN Reason: ALCOHOL WITHDRAWAL Lorazepam (Lorazepam 2 Mg/Ml Inj 1 Ml) 2 mg IVP PRN PRN; Protocol PRN Reason: WITHDRAWAL Multivitamins Therapeutic (Multivitamin Therapeutic Tablet) 1 tab PO DAILY [facility] Last Admin: 03/13/24 08:50 Dose: 1 tab Ondansetron HCl (Ondansetron 2 Mg/Ml Sdv 2 Ml) 4 mg IVP Q8H PRN PRN Reason: vomiting, or N/V if npo Ondansetron HCl (Ondansetron 4 Mg Tablet) 4 mg PO Q8H PRN PRN Reason: NAUSEA Pantoprazole Sodium (Pantoprazole 40 Mg Sdv) 40 mg IVP Q12H [facility] Last Admin: 03/13/24 12:15 Dose: 40 mg Discontinued Medications Acetaminophen (Acetaminophen 325 Mg Tablet) 650 mg PO ONCE ONE Stop: 03/12/24 19:57 Last Admin: 03/12/24 21:35 Dose: 650 mg Ceftriaxone Sodium (Ceftriaxone 1,000 Mg Sdv) 1,000 mg IVP ONCE ONE; Protocol Stop: 03/12/24 22:18 Last Admin: 03/12/24 22:45 Dose: 1,000 mg Ceftriaxone Sodium (Ceftriaxone 1,000 Mg Sdv) 1,000 mg IVP Q24H JUAN M; Protocol Sodium Chloride (Sodium Chloride 0.9%) 1,000 mls @ 999 mls/hr IV .Q1H1M JUAN M Stop: 03/12/24 22:00 Last Infusion: 03/13/24 00:02 Dose: Infused Azithromycin 500 mg/ Sodium (Chloride) 250 mls @ 250 mls/hr IV ONCE ONE; Protocol Stop: 03/12/24 23:16 Last Infusion: 03/13/24 01:17 Dose: Infused Azithromycin 500 mg/ Sodium (Chloride) 250 mls @ 250 mls/hr IV Q24H JUAN M; Protocol Methylprednisolone Sodium Succinate 1,000 mg/ Sodium Chloride 258 mls @ 258 mls/hr IV ONCE ONE Stop: 03/13/24 13:29 Last Infusion: 03/13/24 13:34 Dose: Infused Ketorolac Tromethamine (Ketorolac 30 Mg/Ml Inj) 15 mg IVP ONCE ONE Stop: 03/13/24 09:17 Last Admin: 03/13/24 09:44 Dose: 15 mg Thiamine HCl (Thiamine 100 Mg/Ml Sdv) 100 mg IVP ONCE ONE Stop: 03/12/24 22:17 Last Admin: 03/12/24 22:45 Dose: 100 mg Allergies Penicillins Allergy (Verified 03/13/24 00:15) ALGY-Rash tetracycline Allergy (Verified 03/13/24 00:59) ALGY-Difficulty Breathing Discharge Plan Discharge Condition: Stable Patient Instructions: Altered Mental Status (ED), Opioid Safety Transfer Attestations Time Spent in Transfer Care: greater than 30 min Quality Metrics Clinical Quality Measures [ No reported AMI, CVA or VTE this stay] Coding Level of Care Code 56413 Total time (in minutes) for Discharge: 120 Diagnoses Sepsis A41.9 Thrombocytopenia D69.6 Rhabdomyolysis M62.82 Altered mental status R41.82 Alcohol use disorder F10.90 Metabolic acidosis E87.20 Transaminitis R74.01 Azotemia R79.89
[2024-03-13] MEDS: iohexol 350 mg/mL 500 mL Btl (per mL) IV (15:27)
--- NOTE | 2024-03-13 16:35 | CTR_ITS ---
PROCEDURE INFORMATION: Exam: CT Head Without Contrast Exam date and time: 03/13/2024 4:56 PM Age: 53 years old Clinical indication: Pain; Headache; Additional info: Headache, rule out bleed TECHNIQUE: Imaging protocol: Computed tomography of the head without contrast. Radiation optimization: All CT scans at this facility use at least one of these dose optimization techniques: automated exposure control; mA and/or kV adjustment per patient size (includes targeted exams where dose is matched to clinical indication); or iterative reconstruction. COMPARISON: CT head wo con* [id number] 03/12/2024 8:49 PM RADIATION DOSE METRICS: Total DLP (mGy-cm): 934.44 FINDINGS: Brain: Bilateral periventricular white matter and centrum semiovale hypodensities, consistent with chronic ischemic small vessel disease. No recent infarct, intracranial bleed or mass effect. Cerebral ventricles: No ventriculomegaly. Paranasal sinuses: Visualized sinuses are unremarkable. No fluid levels. Mastoid air cells: Visualized mastoid air cells are well aerated. Bones: Unremarkable. No acute fracture. Soft tissues: Unremarkable. CT/CT head wo con* [id number] IMPRESSION: No large territorial infarct or intracranial bleed.
--- NOTE | 2024-03-13 16:37 | PC.NURSE ---
Blood bank called to inform us that only 1 bag of platelets are available at this time. They are calling for the other bag which should be here around 1900 to 2000. This nurse and ERNIE Chavez will pass this along in report at shift change.
[2024-03-13] MEDS: morphine 4 mg/mL SDV 1 mL 2 MG IVP (16:47)
[2024-03-13 17:19] LABS: Basophils # 0.1 10^3/uL (0.0-0.1); Basophils % 0.8 %; Hematocrit 35.9 % (37-53); Lymphocytes # 4.3 10^3/uL (0.8-4.8); Lymphocytes % 45.1 %; Mean Corpuscular HGB Conc 33.7 g/dL (30-55); Mean Corpuscular Hemoglobin 33.1 pg (27-33); Mean Corpuscular Volume 98.1 fl (82-101); Mean Platelet Volume 13.4 fL (7.4-10.4); Monocytes # 2.9 10^3/uL (0.2-0.9); Monocytes % 30.5 %; Neutrophils # 1.92 10^3/uL (1.8-7.7); Neutrophils % 20.3 %; Nucleated Red Blood Cells # 0.1 /100WBC; Nucleated Red Blood Cells % 1.1 %; Red Blood Count 3.66 10^6/uL (3.85-5.65); Red Cell Distribution Width 13.7 % (12.1-15.1); White Blood Count 9.48 10^3/uL (3.29-11.43)
[2024-03-13 17:34] LABS: Platelet Count 18 10^3/cmm (157-399)
--- NOTE | 2024-03-13 17:44 | PC.NURSE ---
This nurse called report to ERNIE Barrett at [phone] at [phone].
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
[2024-03-13] MEDS: FUROsemide 10 mg/mL SDV 4mL 40 MG IVP (20:24)
--- NOTE | 2024-03-13 20:29 | PC.NURSE ---
Report called to Marisela in ICU. ABDIRAHMAN Jung notified this nurse that patient's oxygen saturation was 83% on 2L NC. Patient was placed on 10L non-rebreather mask and patient transferred to ICU via bed. Patient transferred over to ICU bed. Daughter, Tiffany, was notified of patient's transfer and that ICU will notify her when he transfers out of facility.
--- NOTE | 2024-03-13 20:34 | PC.NURSE ---
Patient got to the ICU at 1950, before transfer he got short of breath and required non rebreather. When he got to the unit his o2 was 88%. RT came to bedside and placed patient on 12L oxymask. Lungs sound coarse. Fluids stopped. Dr. Gar notified and order received for 40mg IVP lasix once and BIPAP.
--- NOTE | 2024-03-13 22:09 | PC.NURSE ---
[facility] transport came and got patient. Nurse at notified that patient is on their way, Daughter, Tiffany Zapata notified that he is on the way.
[2024-03-15 16:55] LABS: Methicillin-Resist S.aureu PCR NOT DETECTED (NOT DETECTED)
[2024-03-17 15:00] LABS: HEP C RNA Viral Load Quant 5020 IU/mL (NOT DETECTED)
[2024-03-18 08:24] LABS: Fibrinogen Degradation Product 40 mcg/mL (LESS THAN 5)
[2024-03-18 08:24] LABS: Fibrinogen Degradation Product 20 mcg/mL (LESS THAN 5)
[2024-03-18 14:27] LABS: Lyme AB Screen <0.90 index
[2024-03-19 16:15] LABS: ADAMTS 13 Activity 1.27 IU/mL (0.68-1.63)
[2024-03-21 23:10] LABS: RMSF IGG NOT DETECTED; RMSF IGM NOT DETECTED
[2024-03-23 09:59] LABS: E. Chaffeensis AB IGG <1:64; E. Chaffeensis AB IGM <1:20
== END 2024-03-13 22:02 | disposition short-term general hospital (02) | DRG 871 ==
LOC: ER 23:12 → MEDSURG 23:18 → ICU 03-13 20:02
PROVIDERS: Admitting Provider Internal Medicine; Emergency Provider Emergency Medicine; Visit Provider Internal Medicine
DX: A41.9 Sepsis, unspecified organism (principal); J69.0 Pneumonitis due to inhalation of food and vomit; M62.82 Rhabdomyolysis; E87.20 Acidosis, unspecified; D76.1 Hemophagocytic lymphohistiocytosis; F10.10 Alcohol abuse, uncomplicated; D69.6 Thrombocytopenia, unspecified; R41.82 Altered mental status, unspecified; Z11.52 Encounter for screening for COVID-19
CPT/HCPCS: 36415; 36416; 36430; 36600; 70450; 71045; 71260; 74177; 80053; 80061; 80306; 80307; 80503; 81003; 81015; 82140; 82247; 82248; 82550; 82728; 82805; 82962; 82977; 83010; 83605; 83615; 83690; 83735; 84100; 84145; 84443; 84484; 85025; 85045; 85362; 85378; 85384; 85397; 85610; 85651; 85730; 86140; 86618; 86666; 86705; 86706; 86709; 86757; 86803; 86880; 86900; 87040; 87086; 87340; 87426; 87522; 87641; 87806; 93005; 94660; 96365; 96375; 99285; J0456; J0696; J1885; J1940; J2270; J2470; J2919; J3370; J3411; J3490; J7030; J7050; P9035; Q3014